=== PATIENT | male | born 1950 | race Caucasian/White ===

== ENCOUNTER 2017-07-28 17:57 | Emergency (ER) | payer OTHER, MEDICARE ==
[2017-07-28 18:10] VITALS: BP 157/85; PULSE 58; TEMP 98.3; BMI 28.1
--- NOTE | 2017-07-28 18:47 | PDOC ---
History of Present Illness - General History Source: Patient, Family Exam Limitations: No Limitations - History of Present Illness Initial Comments: 07/28/17 19:02 The patient is a 67 year old male presenting with his , with a significant past medical history of depression, who presents to the emergency department with right knee injury. He states that he was walking up a step when his right knee gave out, landing on the knee. He states that this occurred 30 minutes prior to arrival and since has not been able to bear weight or extend the leg. He denies any recent antibiotics use. He denies any other kind of injuries. The patient denies chest pain, shortness of breath, headache and dizziness. Allergies: None Past surgical history: Hip surgery Social history: No alcohol, tobacco or drug use reported <Chidi Manuel - Last Filed: 07/28/17 19:28> - General History Source: Patient Exam Limitations: No Limitations <Dennise Peña - Last Filed: 07/28/17 19:34> - General Chief Complaint: Injury Stated Complaint: RIGHT KNEE INJURY Time Seen by Provider: 07/28/17 18:14 Past History <Chidi Manuel - Last Filed: 07/28/17 19:28> - Past Medical History COPD: No Other medical history: DEPRESSION - Suicide/Smoking/Psychosocial Hx Smoking History: Never smoked Have you smoked in the past 12 months: No Information on smoking cessation initiated: No Hx Alcohol Use: No Drug/Substance Use Hx: No Substance Use Type: None <Dennise Peña - Last Filed: 07/28/17 19:34> - Past Medical History Allergies/Adverse Reactions: Allergies Allergy/AdvReac Type Severity Reaction Status Date / Time No Known Allergies Allergy Unverified 07/28/17 17:59 Home Medications: Ambulatory Orders Bupropion HCl [Wellbutrin Xl -] 150 mg PO DAILY 07/28/17 Ibuprofen 600 mg PO TID PRN #90 tablet MDD 3 07/28/17 Review of Systems - Review of Systems Able to Perform ROS?: Yes Comments:: 07/28/17 19:02 GENERAL/CONSTITUTIONAL: No fever or chills. No weakness. HEAD, EYES, EARS, NOSE AND THROAT: No change in vision. No ear pain or discharge. No sore throat.- CARDIOVASCULAR: No chest pain or shortness of breath RESPIRATORY: No cough, wheezing, or hemoptysis. GASTROINTESTINAL: No nausea, vomiting, diarrhea or constipation. GENITOURINARY: No dysuria, frequency, or change in urination. MUSCULOSKELETAL: (+) Right knee pain. No joint or muscle swelling or pain. No neck or back pain. SKIN: No rash NEUROLOGIC: No headache, vertigo, loss of consciousness, or change in strength/ sensation. ENDOCRINE: No increased thirst. No abnormal weight change HEMATOLOGIC/LYMPHATIC: No anemia, easy bleeding, or history of blood clots. ALLERGIC/IMMUNOLOGIC: No hives or skin allergy. <Chidi Manuel - Last Filed: 07/28/17 19:28> *Physical Exam - Vital Signs Last Vital Signs Temp Pulse Resp BP Pulse Ox 98.3 F 58 L 16 157/85 99 07/28/17 17:58 07/28/17 17:58 07/28/17 17:58 07/28/17 17:58 07/28/17 17:58 - Physical Exam Comments: 07/28/17 19:02 GENERAL: Awake, alert, and fully oriented, in no acute distress HEAD: No signs of trauma, normocephalic, atraumatic NECK: Normal ROM, supple, no lymphadenopathy, JVD, or masses LUNGS: No distress, speaks full sentences, clear to auscultation bilaterally HEART: Regular rate and rhythm, normal S1 and S2, no murmurs, rubs or gallops, peripheral pulses normal and equal bilaterally. ABDOMEN: Soft, nontender, normoactive bowel sounds. No guarding, no rebound. No masses EXTREMITIES : (+) Right lower extremity right knee has a bruise right above the right patella, unable to extend against gravity, passive ragne of motion is intact, patella tendon is papable and non tender. Right ankle and hip are palpable and non tender. NEUROLOGICAL: Cranial nerves II through XII grossly intact. Normal speech, normal gait, no focal sensorimotor deficits SKIN: Warm, Dry, normal turgor, no rashes or lesions noted. <Chidi Manuel - Last Filed: 07/28/17 19:28> - Vital Signs Last Vital Signs Temp Pulse Resp BP Pulse Ox 98.3 F 58 L 16 157/85 99 07/28/17 17:58 07/28/17 17:58 07/28/17 17:58 07/28/17 17:58 07/28/17 17:58 <Dennise Peña - Last Filed: 07/28/17 19:34> ED Treatment Course - RADIOLOGY Radiology Studies Ordered: Category Date Time Status KNEE 3 POS-RIGHT [RAD] Stat Radiology 07/28/17 18:23 Ordered KNEE 4 POS-RIGHT [RAD] Stat Radiology 07/28/17 18:14 Ordered <Dennise Peña - Last Filed: 07/28/17 19:34> Medical Decision Making - Medical Decision Making 07/28/17 19:28 Dr. Carson was called regarding the patient at 7:28pm. Dr. Garcia non destructive testing supervisor. <Chidi Manuel - Last Filed: 07/28/17 19:28> - Medical Decision Making 07/28/17 18:42 67 yo M r/o right knee pain. Patient was walking up a step suddenly the right knee gave out now complaining of inability to stand and inability to extend the right knee. No prior surgery on that knee no recent fevers no recent antibiotics no hip or ankle pain only has pain when trying to ambulate On physical exam the right knee is noted to have a bruise just above the right patella consistent with a possible quadriceps tendon rupture unable to extend against gravity. Note tenderness over the patella tendon. Ankle and hip are full range of motion without tenderness. Differential diagnosis includes quadricep tendon rupture versus partial tear. Versus fracture plan to x-ray will likely require immobilization and outpatient orthopedic follow-up for possible surgery bedside ultrasound to evaluate the right quadricep tendon Patient declining any more pain medication in the ED he took Motrin prior to arrival 07/28/17 19:33 focused ED ultrasound right quadricep tendon shows complete rupture. fluid noted. comparison to left leg performed. right patellar tendon evaluated and noted to be intact. impression: right quadricep tendon rupture. <Dennise Peña - Last Filed: 07/28/17 19:34> *DC/Admit/Observation/Transfer - Attestations Scribe Attestion: 07/28/17 19:03 Documentation prepared by Chidi Manuel, acting as certified medical coder for Dennise Peña MD <Chidi Manuel - Last Filed: 07/28/17 19:28> <Dennise Peña - Last Filed: 07/28/17 19:34> Diagnosis at time of Disposition: Quadriceps tendon rupture - Discharge Dispostion Condition at time of disposition: Good - Prescriptions Prescriptions: Ibuprofen 600 mg PO TID PRN #90 tablet MDD 3 PRN Reason: Pain - Referrals Referrals: Jaime Carson MD [Staff Physician] - - Patient Instructions Printed Discharge Instructions: Tendon Repair Additional Instructions: you need to follow up with orthopedic surgeon dr. Carson. on sunday, call office before going to office. let them know you were seen in the emergency room. you should wear knee immobilizer until you followup. use crutches. you can take ibuprofen 600 mg every 8 hours as needed for pain. ice and elevate to help reduce the amount of swelling. you can take percocet one every 6 hours as needed for pain not relieved by motrin.
== END 2017-07-28 19:51 | disposition home or self-care (01) ==
LOC: FER 17:57
DX: S76.111A Strain of right quadriceps muscle, fascia and tendon, initial encounter (principal); X58.XXXA Exposure to other specified factors, initial encounter; Y93.89 Activity, other specified; Y92.9 Unspecified place or not applicable
CPT/HCPCS: 73562-TC-RT; 99282-25